=== PATIENT | female | born 1980 | race Caucasian/White ===

== ENCOUNTER 2020-12-19 09:57 | Day surgery (SDC) | payer OTHER ==
[~2020-12-19] VITALS: Ht 162.6 cm; Wt 115.2 kg
[~2020-12-19 09:57] MED LIST: ALBU90OI INH; AMOX500 PO; AZIT250 PO; CODGUAEL PO; HYDACE5 PO; MULVITMINE PO; ONDA4ODT MM; PENVK500 PO; PROM25S PR; RXCODGUASY PO; RXONDA4ODT MM
== END 2020-12-19 12:12 | disposition home or self-care (01) ==
LOC: ORSCSDS 09:57
PROVIDERS: Internal Medicine Gastroenterology
PROC: 0D758ZZ Dilation of Esophagus, Via Natural or Artificial Opening Endoscopic (ICD-10-PCS; principal; 2020-12-19 11:00)
PROC: 0DB68ZX Excision of Stomach, Via Natural or Artificial Opening Endoscopic, Diagnostic (ICD-10-PCS; principal; 2020-12-19 11:00)
PROC: 0DB58ZX Excision of Esophagus, Via Natural or Artificial Opening Endoscopic, Diagnostic (ICD-10-PCS; principal; 2020-12-19 11:00)
DX: R13.14 Dysphagia, pharyngoesophageal phase (principal); E66.9 Obesity, unspecified; Z68.41 Body mass index [BMI] 40.0-44.9, adult
CPT/HCPCS: 88305; 88342; J2704; J7120

== ENCOUNTER 2021-03-07 11:19 | Emergency (ER) | payer OTHER ==
[~2021-03-07] VITALS: Ht 162.6 cm; Wt 112.5 kg
== END 2021-03-07 16:05 | disposition left against medical advice (07) ==
LOC: ER 11:19
DX: M79.605 Pain in left leg (principal); M79.604 Pain in right leg; U07.1 COVID-19; Z53.20 Procedure and treatment not carried out because of patient's decision for unspecified reasons
CPT/HCPCS: 99284

== ENCOUNTER 2021-03-08 11:53 | Emergency (ER) | payer OTHER ==
[~2021-03-08] VITALS: Ht 162.6 cm; Wt 112.5 kg
== END 2021-03-08 17:12 | disposition left against medical advice (07) ==
LOC: ER 11:53
DX: M79.605 Pain in left leg (principal); M79.604 Pain in right leg; Z53.21 Procedure and treatment not carried out due to patient leaving prior to being seen by health care provider
CPT/HCPCS: 99282

== ENCOUNTER 2022-03-18 11:37 | Emergency (ER) | payer OTHER | END 2022-03-18 16:18 | disposition left against medical advice (07) | LOC: ER 11:37 | DX: K59.00 Constipation, unspecified (principal); L02.31 Cutaneous abscess of buttock; Z53.21 Procedure and treatment not carried out due to patient leaving prior to being seen by health care provider ==

== ENCOUNTER 2023-03-18 05:48 | Day surgery (SDC) | payer OTHER ==
[~2023-03-18] VITALS: Ht 162.6 cm; Wt 111.1 kg
[2023-03-18] VITALS (12 sets, daily range): BP systolic 101–114; BP diastolic 67–77
[~2023-03-18 05:48] MED LIST changes: +AMOCLA875 PO; +ASPI81CH PO; +OXAYDO5 M2 PO; +QUDEXY PO
--- NOTE | 2023-03-18 06:34 | NUR ---
Ambulatory in Day Surgery Patient confirms NPO status and agrees with scheduled surgery. Pre-Op teaching done. Pt verbalizes understanding. History, Chart, Medications and Allergies reviewed before start of procedure.Patient States Post-Procedure ride home has been arranged.
--- NOTE | 2023-03-18 09:38 | NUR ---
DISCHARGE NOTE PT A&OX4, BREATHING RA, NO COMPLAINTS. PT DRESSED INDEPENDENTLY C RN AT BEDSIDE. PT TOLERATING PO FLUIDS. REFUSED PO FOOD AND PAIN PILL 2/2 NO PAIN. Discharge instructions reviewed with patient. Patient verbalizes understanding. Copy given to patient to take home. Dressing to procedure site clean, dry, intact with no visible drainage, swelling, erythema or bruising noted. Discharged via wheelchair to private car for ride home.
== END 2023-03-18 09:42 | disposition home or self-care (01) ==
LOC: ORSCMMR 05:48 → ORD 07:30 → ORSCMMR 09:42
PROVIDERS: Surgery
PROC: 0H89XZZ Division of Perineum Skin, External Approach (ICD-10-PCS; principal; 2023-03-18 07:30)
DX: K60.3 Anal fistula (principal); E66.01 Morbid (severe) obesity due to excess calories; Z68.41 Body mass index [BMI] 40.0-44.9, adult; Z79.899 Other long term (current) drug therapy
CPT/HCPCS: J1100; J2405; J2704; J3010; J7120